=== PATIENT | male | born 2000 | race Hispanic/Latino ===

== ENCOUNTER → 2020-07-28 | Outpatient (CLI) | payer OTHER | END | disposition home or self-care (01) | LOC: OIH 10:34 | PROVIDERS: ATTEND Internal Medicine | DX: R06.02 Shortness of breath (principal) | CPT/HCPCS: 71046 ==

== ENCOUNTER 2023-11-18 16:41 | Emergency (ER) | payer BC, OTHER ==
[~2023-11-18] VITALS: Ht 175.3 cm; Wt 104.3 kg
[2023-11-18 17:38] LABS: APPEARANCE,URINE CLEAR (CLEAR); BILIRUBIN,URINE NEGATIVE (NEGATIVE); COLOR,URINE YELLOW (YELLOW); GLUCOSE, URINE (UA) NEGATIVE (NEGATIVE); KETONES,URINE NEGATIVE (NEGATIVE); LEUKOCYTE ESTERASE ,URINE NEGATIVE Leu/uL (NEGATIVE); NITRATE,URINE NEGATIVE (NEGATIVE); OCCULT BLOOD,URINE SMALL (NEGATIVE); PH,URINE 5.5 (5.0-8.0); PROTEIN,URINE 30 mg/dL (NEGATIVE); UROBILINOGEN,URINE 0.2 mg/dL (0.2-1.0)
[2023-11-18 17:40] LABS: ADD UA MICROSCOPIC YES
[2023-11-18 17:52] LABS: MUCUS,URINE RARE LPF (None Seen)
[2023-11-18 18:18] LABS: BASOPHILS # (AUTO) 0.01 K/uL (0.00-0.20); BASOPHILS % (AUTO) 0.1 % (0.0-5.0); EOSINOPHILS # (AUTO) 0.05 K/uL (0.00-0.70); EOSINOPHILS % (AUTO) 0.6 % (0.0-8.0); HEMATOCRIT 33.6 % (42-54); IMMATURE GRANULOCYTE ABSOLUTE 0.03 K/uL (0-1); LYMPHOCYTES # (AUTO) 1.6 K/uL (1.0-4.8); LYMPHOCYTES % (AUTO) 18.4 % (21.0-51.0); MEAN CORPUSCULAR HEMOGLOBIN 28.8 pg (27.0-33.0); MEAN CORPUSCULAR HGB CONC 34.2 g/dL (32.0-36.0); MEAN CORPUSCULAR VOLUME 84.2 fL (79-99); MONOCYTES # (AUTO) 0.6 K/uL (0.1-1.0); MONOCYTES % (AUTO) 7.3 % (3.0-13.0); NEUTROPHILS # (AUTO) 6.3 K/uL (1.8-7.7); NEUTROPHILS % (AUTO) 73.3 % (40.0-77.0); PLATELET COUNT (AUTO) 308 K/uL (130-400); RED BLOOD CELL COUNT(AUTO) 3.99 MIL/uL (4.50-6.20); WHITE BLOOD COUNT (AUTO) 8.6 K/uL (4.8-10.8)
[2023-11-18] MEDS: 0.9%NACL 1000ML 1,000 ML IV ONE (18:19)
[2023-11-18 18:28] LABS: CREATININE 0.8 mg/dL (0.5-1.3)
[2023-11-18 18:33] LABS: BILIRUBIN,TOTAL 0.4 mg/dL (0.2-1.0); TOTAL PROTEIN, SERUM 9.3 g/dL (6.0-8.3)
[2023-11-18 18:45] LABS: RAPID GROUP A STREP negative (NEGATIVE)
[2023-11-18 18:47] LABS: SARS-CoV-2, RNA, NAAT NEGATIVE SARS CoV-2 (NEGATIVE)
[2023-11-18 18:54] LABS: INFLUENZA TYPE A Negative For Type A (NEGATIVE); INFLUENZA TYPE B Negative For Type B (NEGATIVE)
[2023-11-18] MEDS: SOLU-MEDROL 125MG VIAL IVP ONE (20:38)
[2023-11-18] MEDS: CEFTRIAXONE 1G VIAL IVPB ONE (21:51)
[2023-11-18] MEDS: AZITHROMYCIN 500MG+NS 250ML 250 ML IVPB SCH (21:52)
[2023-11-18] MEDS ORDERED: LEVO750T68 PO (22:00)
[2023-11-18 23:20] VITALS: BP 118/68; PULSE 92; RESP 16; O2SAT 98
== END 2023-11-18 23:27 | disposition home or self-care (01) ==
LOC: EDH 16:41
DX: J18.9 Pneumonia, unspecified organism (principal); J45.909 Unspecified asthma, uncomplicated; M32.9 Systemic lupus erythematosus, unspecified; Z98.890 Other specified postprocedural states; Z88.8 Allergy status to other drugs, medicaments and biological substances; Z20.822 Contact with and (suspected) exposure to COVID-19
CPT/HCPCS: 99284; 96365; 96361; 71250; 71045; 87635; 96375 ×2; 82550; 84484; 80053; 85025; 87880; 87804 ×2; 81001; 36415; 93005; J7030; J2919; J0696; J0456